=== PATIENT | male | born 2000 | race Caucasian/White ===

== ENCOUNTER 2021-01-25 21:56 | Emergency (ER) | payer OTHER ==
[~2021-01-25] VITALS: Ht 167.6 cm; Wt 74.8 kg
[2021-01-25] MEDS ORDERED: CEPH500 PO (23:28)
== END 2021-01-25 23:42 | disposition home or self-care (01) ==
LOC: ER 21:56
DX: S61.412A Laceration without foreign body of left hand, initial encounter (principal); I10 Essential (primary) hypertension; Z23 Encounter for immunization; W26.8XXA Contact with other sharp object(s), not elsewhere classified, initial encounter
CPT/HCPCS: 12001; 90714; 99282-25; A9270